=== PATIENT | male | born 1935 | race Caucasian/White ===

== ENCOUNTER 2016-03-05 10:44 | Emergency (ER) | payer MEDICARE, BC ==
[2016-03-05] MEDS ORDERED: ASPIRIN EC 325 MG TAB PO ONE (13:12)
[2016-03-05] MEDS ORDERED: SODIUM CHLORIDE 0.9% 1,000 ML ONE (13:12)
== END 2016-03-05 14:30 | disposition other institution (70) ==
LOC: ER 10:44
CPT/HCPCS: 36415; 70551; 80053; 81003; 82553; 84439; 84443; 84484; 85025; 93005